=== PATIENT | female | born 1955 | race Caucasian/White ===

== ENCOUNTER 2017-05-13 19:05 | Emergency (ER) | payer BC ==
[2017-05-13] MEDS ORDERED: Lidocaine 1% with EPINEPHrine 1:100,000 20 ML MDV ONE (20:00)
--- NOTE | 2017-05-13 22:30 | ER ---
HISTORY OF PRESENT ILLNESS: A 61-year-old lady here with complaints of cutting her right foot. She was getting something out of the fridge when a jar of jelly fell out incidentally and landed on her foot. The patient states that it did bleed for several minutes, but she was able to stop the bleeding. She denies any difficulty walking. She states that she is current with her tetanus status, and she is not on any anticoagulation medications. OBJECTIVE: GENERAL APPEARANCE: The patient is awake and alert, in no obvious distress. VITAL SIGNS: Reviewed as listed. EXTREMITIES: Physical exam examining the right foot reveals a laceration on the medial side of the midfoot area. The wound edges are clean and sharp. The laceration would measure about 3 cm in length. There is no active bleeding at this time. It is just through the epidermis with minimal subcu involvement. DIAGNOSIS: Laceration to right foot. TREATMENT PLAN: Nursing staff cleansed the site initially after which I injected 1% lidocaine with epinephrine locally, injecting about 2 mL. I then cleansed the site with Betadine one more time after which I acquired sterile field and the wound was closed with suturing, it required 5 sutures. I used 5-0 Ethilon. The patient tolerated the procedure well after which, the site was cleansed once more. Antibiotic ointment and a Band-Aid were applied. The patient is to keep the site covered for a couple of days, changing the dressing after washing. She is not to wash the area without a Band-Aid intact for 24 hours, and she is not to soak the area for several days. After 2 or 3 days when she is not wearing shoes or footwear, she can have the area open to air. When she is wearing shoes, there would be some pressure against this spot. Therefore, a Band-Aid would be isaac to use for a few days. Sutures should come out in 8-10 days. She is to monitor for infection and use [id number] medications such as Tylenol or Motrin as needed. The patient has no questions. DENISE/SABINE /[id number]
[2017-05-13 23:03] VITALS: BP 129/58
== END 2017-05-13 20:20 | disposition home or self-care (01) ==
LOC: LB.ED 19:05
DX: S91.311A Laceration without foreign body, right foot, initial encounter (principal); W20.8XXA Other cause of strike by thrown, projected or falling object, initial encounter
CPT/HCPCS: 12002; 99283-25

== ENCOUNTER 2020-09-05 10:38 | Day surgery (SDC) | payer BC ==
[~2020-09-05 10:38] MED LIST: Metoclopramide 10 MG/2 ML SDV IV PRN
[2020-09-05] MEDS: Sodium Chloride 0.9% 1,000 ML IV SCH (11:29)
[2020-09-05] MEDS ORDERED: Propofol 200 MG/20 ML SDV ONE (14:15)
[2020-09-05 14:34] VITALS: BP 148/83; PULSE 67
--- NOTE | 2020-09-05 21:42 | OR ---
DATE OF OPERATION: 09/05/2020 SURGEON: Foreign Coleman MD PREOPERATIVE DIAGNOSIS: Positive Cologuard test. POSTOPERATIVE DIAGNOSIS: Positive Cologuard test. PROCEDURE: Colonoscopy. ANESTHESIA: MAC. ESTIMATED BLOOD LOSS: None. COMPLICATIONS: None. INDICATION FOR THE PROCEDURE: The patient is a 65-year-old female who has had previous polyps. Last colonoscopy was 7 years ago. She did have a Cologuard test recently, which was positive. She is here today for a diagnostic colonoscopy. DESCRIPTION OF PROCEDURE: Informed consent was obtained from the patient. The patient was taken to the operating room and placed on the table in left lateral decubitus position. Monitored anesthesia care was administered. Digital rectal exam performed was normal. Colonoscope was then advanced through the anus toward the cecum. Cecum was reached and identified by appendiceal orifice and ileocecal valve. Colonoscope was then slowly withdrawn. She did have a few small diverticula in the sigmoid colon. Also note, the terminal ileum was intubated. Terminal ileum also appeared to be normal. Colonoscope was slowly withdrawn. The rectum was also otherwise unremarkable. Colonoscope then fully withdrawn. FINDINGS: A few small sigmoid diverticula, otherwise normal colon and normal terminal ileum. RECOMMENDATIONS: We would recommend repeat surveillance colonoscopy in 5 years. LITA/SABINE /[id number]
== END 2020-09-05 15:05 | disposition home or self-care (01) ==
LOC: LB.SDS 10:38
PROVIDERS: ATTEND Surgery
DX: K57.30 Diverticulosis of large intestine without perforation or abscess without bleeding (principal); Z86.010 Personal history of colon polyps; Z88.2 Allergy status to sulfonamides; Z79.899 Other long term (current) drug therapy
CPT/HCPCS: J2704; J7030